=== PATIENT | male | born 1955 | race Caucasian/White ===

== ENCOUNTER 2016-06-21 07:48 | Day surgery (SDC) | payer OTHER ==
[2016-06-15 13:03] VITALS: BMI 23.1
[2016-06-21] MEDS ORDERED: PROPOFOL 20 ML ONE ×2 (07:52)
[2016-06-21 10:21] VITALS: BP 112/60; PULSE 77; TEMP 97.5
== END 2016-06-21 09:30 | disposition home or self-care (01) ==
LOC: FASU-ENDO 07:48
PROVIDERS: ATTEND Internal Medicine Gastroenterology
PROC: 0DJD8ZZ Inspection of Lower Intestinal Tract, Via Natural or Artificial Opening Endoscopic (ICD-10-PCS; principal; 2016-06-21 08:42)
DX: Z12.11 Encounter for screening for malignant neoplasm of colon (principal); Z80.0 Family history of malignant neoplasm of digestive organs; K57.30 Diverticulosis of large intestine without perforation or abscess without bleeding